=== PATIENT | male | born 1975 | race Caucasian/White ===

== ENCOUNTER 2018-02-06 17:06 | Emergency (ER) | payer OTHER ==
[~2018-02-06] VITALS: Ht 190.5 cm; Wt 102.3 kg
[2018-02-06 20:38] LABS: BASOPHIL (%) 0.6 % (0-1); BASOPHIL COUNT 0.1 K/uL (0-0.1); EOSINOPHIL (%) 1.8 % (0-5); EOSINOPHIL COUNT 0.2 K/uL (0-0.3); HEMATOCRIT 43.4 % (38.0-50.0); HEMOGLOBIN 14.8 G/DL (12.5-16.6); IMMATURE GRANULOCYTE (%) 0.3 % (0.0-0.7); LYMPHOCYTE (%) 28.5 % (15-42); LYMPHOCYTE COUNT 3.1 K/uL (1.0-2.8); MCH 32.9 PG (29.0-34.0); MCHC 34.1 G/DL (30.0-36.0); MCV 96.4 FL (86-99); MONOCYTE (%) 6.3 % (3-12); MONOCYTE COUNT 0.7 K/uL (0-0.8); NEUTROPHIL (%) 62.5 % (45-76); NEUTROPHIL COUNT 6.8 K/uL (1.8-6.4); PLATELET COUNT 215 K/uL (156-360); RBC DIS.WIDTH-CV 12.9 % (11.8-14.6); RBC DIS.WIDTH-SD 46.2 % (39-53); WHITE BLOOD COUNT 10.8 K/uL (4.1-10.2)
[2018-02-06 20:55] LABS: CHLORIDE 107 mEq/L (99-109); SODIUM 143 mEq/L (136-147)
[2018-02-06 20:57] LABS: GLUCOSE 85 mg/dL (70-99)
[2018-02-06 21:01] LABS: CREATININE 1.1 mg/dL (0.6-1.3); GFR ESTIMATE (CALCULATED) > 59 mL/min/ (58.99-99999)
[2018-02-06 21:02] LABS: UREA NITROGEN (BUN) 7 mg/dL (9-23)
[2018-02-06] MEDS ORDERED: CIPRO500 MG PO (22:08)
[2018-02-06] MEDS ORDERED: INDOCIN50 MG PO (22:08)
[2018-02-06] MEDS ORDERED: ECONAZOLE NITRA15 GM TP (22:20)
[2018-02-06 22:32] VITALS: BP 123/74
== END 2018-02-06 22:39 | disposition home or self-care (01) ==
LOC: EXP 17:06 → EME 17:06 → EXP 22:39
PROVIDERS: Physician Assistant
DX: L03.115 Cellulitis of right lower limb (principal); L03.125 Acute lymphangitis of right lower limb; M25.472 Effusion, left ankle; Z88.0 Allergy status to penicillin; Z59.0 Homelessness; Z87.891 Personal history of nicotine dependence
CPT/HCPCS: 73630; 80048; 83605; 85025; 87040; 87070; 87075; 87205; 99281; 99284; J0295; J7050

== ENCOUNTER 2018-02-10 18:14 | Emergency (ER) | payer OTHER ==
[~2018-02-10] VITALS: Ht 190.5 cm; Wt 101.0 kg
[~2018-02-10 18:14] MED LIST: CIPRO500 MG PO; ECONAZOLE NITRA15 GM TP; INDOCIN50 MG PO
[2018-02-10 19:46] LABS: HEMATOCRIT 45.6 % (38.0-50.0); HEMOGLOBIN 15.7 G/DL (12.5-16.6); MCH 32.4 PG (29.0-34.0); MCHC 34.4 G/DL (30.0-36.0); MCV 94.2 FL (86-99); PLATELET COUNT 266 K/uL (156-360); RBC DIS.WIDTH-CV 12.7 % (11.8-14.6); RBC DIS.WIDTH-SD 44.1 % (39-53); RED BLOOD COUNT 4.84 M/uL (4.00-5.50); WHITE BLOOD COUNT 10.3 K/uL (4.1-10.2)
[2018-02-10 20:02] LABS: CHLORIDE 105 mEq/L (99-109); POTASSIUM 3.8 mEq/L (3.7-5.4); SODIUM 142 mEq/L (136-147)
[2018-02-10 20:03] LABS: GLUCOSE 110 mg/dL (70-99)
[2018-02-10 20:07] LABS: CREATININE 1.2 mg/dL (0.6-1.3); GFR ESTIMATE (CALCULATED) > 59 mL/min/ (58.99-99999)
[2018-02-10 20:08] LABS: UREA NITROGEN (BUN) 13 mg/dL (9-23)
[2018-02-10] MEDS ORDERED: PREDNISONE20 MG PO (21:24)
[2018-02-10 22:28] VITALS: BP 107/73
== END 2018-02-10 22:33 | disposition home or self-care (01) ==
LOC: EME 18:14
PROVIDERS: Physician Assistant Medical
DX: R22.43 Localized swelling, mass and lump, lower limb, bilateral (principal); R21 Rash and other nonspecific skin eruption; T36.8X5A Adverse effect of other systemic antibiotics, initial encounter; L03.115 Cellulitis of right lower limb; Z87.891 Personal history of nicotine dependence; Z88.0 Allergy status to penicillin
CPT/HCPCS: 80048; 83605; 85027; 87040; 99281; 99284; J7512

== ENCOUNTER 2018-02-16 10:13 | Emergency (ER) | payer OTHER ==
[~2018-02-16] VITALS: Ht 190.5 cm; Wt 98.7 kg
[~2018-02-16 10:13] MED LIST changes: +PREDNISONE20 MG PO
[2018-02-16 12:03] LABS: HEMATOCRIT 43.3 % (38.0-50.0); MCH 32.3 PG (29.0-34.0); MCHC 34.6 G/DL (30.0-36.0); MCV 93.3 FL (86-99); PLATELET COUNT 258 K/uL (156-360); RBC DIS.WIDTH-CV 12.4 % (11.8-14.6); RBC DIS.WIDTH-SD 42.7 % (39-53); RED BLOOD COUNT 4.64 M/uL (4.00-5.50); WHITE BLOOD COUNT 8.1 K/uL (4.1-10.2)
[2018-02-16 12:14] LABS: ALBUMIN 4.5 g/dL (3.2-4.8); CHLORIDE 105 mEq/L (99-109); POTASSIUM 4.1 mEq/L (3.7-5.4); SODIUM 140 mEq/L (136-147)
[2018-02-16 12:16] LABS: GLUCOSE 88 mg/dL (70-99)
[2018-02-16 12:18] LABS: TOTAL BILIRUBIN 0.7 mg/dL (0.0-1.0)
[2018-02-16 12:20] LABS: ALKALINE PHOSPHATASE 47 IU/L (3-129); CREATININE 0.9 mg/dL (0.6-1.3); GFR ESTIMATE (CALCULATED) > 59 mL/min/ (58.99-99999)
[2018-02-16 12:21] LABS: UREA NITROGEN (BUN) 10 mg/dL (9-23)
[2018-02-16 12:22] LABS: AST (GOT) 15 IU/L (2-34)
[2018-02-16 12:23] LABS: ALT (GPT) 20 IU/L (3-49)
[2018-02-16 14:17] VITALS: BP 00/00
== END 2018-02-16 14:18 | disposition home or self-care (01) ==
LOC: EME 10:13
PROVIDERS: Nurse Practitioner Family
DX: R60.0 Localized edema (principal); Z88.0 Allergy status to penicillin; Z87.891 Personal history of nicotine dependence
CPT/HCPCS: 80053; 85027; 93970; 99281; 99284

== ENCOUNTER 2018-04-22 22:50 | Emergency (ER) | payer OTHER ==
[~2018-04-22] VITALS: Ht 190.5 cm; Wt 96.2 kg
[2018-04-23 00:17] LABS: HEMATOCRIT 38.7 % (38.0-50.0); HEMOGLOBIN 13.6 G/DL (12.5-16.6); MCH 32.9 PG (29.0-34.0); MCHC 35.1 G/DL (30.0-36.0); MCV 93.5 FL (86-99); PLATELET COUNT 217 K/uL (156-360); RBC DIS.WIDTH-CV 12.5 % (11.8-14.6); RED BLOOD COUNT 4.14 M/uL (4.00-5.50); WHITE BLOOD COUNT 10.1 K/uL (4.1-10.2)
[2018-04-23] MEDS ORDERED: KEFLEX500 MG PO (00:26)
[2018-04-23 00:28] LABS: CHLORIDE 106 mEq/L (99-109); POTASSIUM 3.8 mEq/L (3.7-5.4); SODIUM 140 mEq/L (136-147)
[2018-04-23 00:30] LABS: GLUCOSE 131 mg/dL (70-99)
[2018-04-23 00:33] LABS: GFR ESTIMATE (CALCULATED) > 59 mL/min/ (58.99-99999)
[2018-04-23 00:34] LABS: UREA NITROGEN (BUN) 11 mg/dL (9-23)
[2018-04-23 00:47] VITALS: BP 136/88
== END 2018-04-23 00:48 | disposition home or self-care (01) ==
LOC: EME 22:50
PROVIDERS: Physician Assistant
DX: L03.116 Cellulitis of left lower limb (principal); Z88.0 Allergy status to penicillin
CPT/HCPCS: 80048; 85027; 99281; 99284